=== PATIENT | female | born 1980 | race African-American/Black ===

== ENCOUNTER 2023-07-17 07:54 | Day surgery (SDC) | payer BC ==
[2023-07-17] VITALS (8 sets, daily range): BP systolic 109–142; BP diastolic 61–89; PULSE 61–82; TEMP 97–98.1
[~2023-07-17] VITALS: Ht 165.1 cm; Wt 101.9 kg
[~2023-07-17 07:54] MED LIST: Famotidine 20 MG TAB PO SCH; LR 1,000 ML IV SCH
[2023-07-17] MEDS ORDERED: Midazolam 2 MG/2 ML VIAL IV ONE (08:18)
[2023-07-17] MEDS ORDERED: Lidocaine PF 2% (20 MG/ML) 5 ML VIAL IV ONE (08:18)
[2023-07-17] MEDS ORDERED: ePHEDrine 50 MG/ML VIAL IV ONE (08:18)
[2023-07-17] MEDS ORDERED: fentaNYL 50 MCG/ML 2 ML VIAL IV ONE (08:18)
[2023-07-17] MEDS ORDERED: Glycopyrrolate 0.2 MG/ML 1 ML VIAL IV ONE (08:18)
[2023-07-17] MEDS ORDERED: Ondansetron 4 MG/2 ML VIAL IV ONE (08:18)
[2023-07-17] MEDS ORDERED: NS 10 ML VIAL IV ONE (08:18)
[2023-07-17] MEDS ORDERED: Ketorolac 30 MG/ML VIAL IV ONE (08:18)
[2023-07-17] MEDS ORDERED: EPINEPHrine 1 MG/1 ML Ampule IR ONE (10:08)
[2023-07-17] MEDS ORDERED: dexAMETHasone 4 MG/ML VIAL IJ ONE (10:08)
[2023-07-17] MEDS ORDERED: oxyCODONE 5 MG TAB PO PRN ×2 (10:45)
[2023-07-17] MEDS ORDERED: Morphine 4 MG/ML VIAL IV PRN (10:45)
[2023-07-17] MEDS ORDERED: CEPHALEXIN500 M1 PO (10:45)
[2023-07-17] MEDS ORDERED: NORCO 325 MG-51 TAB PO (10:45)
[2023-07-17] MEDS ORDERED: Naloxone 0.4 MG/ML VIAL IV PRN (10:45)
[2023-07-17] MEDS ORDERED: MOTRIN 800800 MG/TAB PO (10:45)
[2023-07-17] MEDS ORDERED: Ondansetron 4 MG/2 ML VIAL IV PRN ×2 (10:45→11:00)
[2023-07-17] MEDS ORDERED: HYDROmorphone 2 MG/1 ML VIAL IV PRN (11:00)
[2023-07-17] MEDS ORDERED: fentaNYL 50 MCG/ML 2 ML VIAL IV PRN (11:00)
--- NOTE | 2023-07-17 11:20 | NUR ---
PATIENT RETURNED TO ROOM 2 VIA CART, ALERT AND ORIENTED X3. DENIES NAUSEA AND SHORTNESS OF BREATH. RATES PAIN TOLERABLE 3/10 TO RIGHT KNEE. BREATHING REGULAR AND UNLABORED ON ROOM AIR. SKIN WARM AND DRY. SEE CHART FOR VITAL SIGNS. NURSE HANDOFF COMPLETED IN ROOM. VISIBLE LATA WRAP TO RIGHT KNEE. LATA WRAP CLEAN, DRY AND INTACT. RIGHT KNEE ELEVATED WITH ICE PRESENT. BILATERAL PEDAL PULSES 3+, TOES CAPILLARY REFILL <3 SECONDS. CALL LIGHT IN REACH. PATIENT HAD APPLE JUICE AND NIDHI CRACKERS. BOTH FOOD AND DRINK TOLERATED WELL. DAUGHTER, GIORGIO, PRESENT IN ROOM.
[2023-07-17] MEDS ORDERED: Acetaminophen 500 MG TAB PO SCH (11:37)
--- NOTE | 2023-07-17 11:48 | NUR ---
MET WITH PATIENT AND DAUGHTER, GIORGIO, IN ROOM 2 TO DISCUSS PROCEDURE.
--- NOTE | 2023-07-17 12:14 | NUR ---
PATIENT REPORTED INTOLERABLE PAIN (RATED 5/10) TO RIGHT KNEE. DISCUSSED PAIN MANAGEMENT OPTIONS WITH PATIENT. SEE EMAR FOR MEDICATION GIVEN.
--- NOTE | 2023-07-17 12:46 | NUR ---
1219: PATIENT AMBULATED WITH STEADY GAIT TO RESTROOM AND VOIDED WITHOUT DIFFICULTY. 1220: IV REMOVED. GAUZE AND COBAN PLACED OVER SITE. 1245: DISCHARGE TEACHING COMPLETED WITH PRINTED EDUCATION AND INSTRUCTIONS SENT HOME WITH PATIENT. FOLLOW UP APPOINTMENT DATE, TIME AND LOCATION COMMUNICATED TO PATIENT. PATIENT VERBALIZED UNDERSTANDING OF TEACHING. 1246: PATIENT REPORTS PAIN IS TOLERABLE 3/10 TO RIGHT KNEE, DENIES ADDITIONAL INTERVENTIONS. PATIENT DISCHARGED HOME WITH [facility].
[2023-07-17] MEDS ORDERED: Ibuprofen 800 MG TAB PO SCH (14:37)
== END 2023-07-17 12:46 | disposition home or self-care (01) ==
LOC: SDCO 07:54
DX: S83.011A Lateral subluxation of right patella, initial encounter (principal); M94.8X6 Other specified disorders of cartilage, lower leg; M25.561 Pain in right knee; E66.9 Obesity, unspecified; F17.200 Nicotine dependence, unspecified, uncomplicated
CPT/HCPCS: J0171; J0665; J0690; J1100; J1885; J2250; J2405; J2704; J3010; J7120